=== PATIENT | male | born 1960 | race Caucasian/White ===

== ENCOUNTER 2019-02-04 13:02 | Emergency (ER) | payer MEDICAID, MEDICARE ==
[2019-02-04] MEDS ORDERED: Metoclopramide 10 MG/2 ML SDV IVPUSH ONE (13:57)
[2019-02-04] MEDS ORDERED: HYDROmorphone 1 MG/ML Syringe IVPUSH ONE (13:57)
[2019-02-04] MEDS ORDERED: Dextrose 5%-0.9% NaCl 1,000 ML IV SCH (14:00)
--- NOTE | 2019-02-04 14:00 | EDM.PDOC ---
ED HPI GENERAL MEDICAL PROBLEM - General Chief Complaint: General Stated Complaint: DEHYDRATION SENT BY CLINIC Time Seen by Provider: 02/04/19 13:57 Source of Information: Reports: Patient, Family History Limitations: Reports: No Limitations - History of Present Illness INITIAL COMMENTS - FREE TEXT/NARRATIVE: 58-year-old male presents to the ED after being seen by Dr. Dalila Quiroz on the family medicine clinic for the first time today. Patient has been residing in [place] but is originally from [facility]. It appears that he came back to [place] sometime in the last week. Someone has facilitated a apartment for him and he is living alone. The patient presents to the ED because of dehydration with a heart rate in the 130s. Her pressure was 92/72 initially. Complicated history reveals that he has had both legs amputated the right one at the hip the left 1 mid shaft of the femur. Reason for this is unclear although his sister states it was because of chronic MRSA infection I suspect osteomyelitis complicated likely by peripheral vascular disease. Patient denies being a diabetic. Patient has a suprapubic catheter in place which was changed on January 29. He has a colostomy left mid abdomen which has never been revised and is been present for many years apparently was done at [facility] in [place]. He states this is greater than 10 years ago. Patient denies having a fever. He states he is very thirsty but has not been able to keep up with his needs. He also has not been eating well. He's also been off of his pain medication since discharge from [place]. He previously has been on OxyContin and oxycodone for pain relief and he is in terrible pain at this point in time. On quick examination patient is indeed tachycardic. He appears to have a low-grade fever. Patient has loss of skin of his lower back entire both but talks almost down to the bone. His scrotum is intact. He has breakdown of the wound at his mid left femur with necrosis and purulent exudate. Onset: Other (Chronic problems.) Duration: Chronic Location: Reports: Back (Complete breakdown of all of the skin of his lower back and both but talks down to the sacrum coccyx. Smells strongly of anaerobic infective process. Scrotum is intact.), Upper Extremity, Left (Has a application mid shaft left femur with the amputation being broken down necrotic tissue and bone exposed.) Quality: Reports: Ache, Burning, Stabbing, Throbbing Severity: Severe Improves with: Reports: None (Pain is 8 out of 9 out of 10.) Worsens with: Reports: None Context: Reports: Other (He sits and a wheelchair that is motorized.). Denies: Activity, Exercise, Lifting, Sick Contact Associated Symptoms: Reports: Fever/Chills, Loss of Appetite, Malaise, Nausea/ Vomiting. Denies: Confusion, Chest Pain, Cough, cough w sputum, Diaphoresis, Headaches, Rash, Seizure (Occasional nausea no vomiting), Syncope Treatments TEACHERS AIDE: Reports: Other (see below) (None.) Generalized Pain Score (Numeric/FACES): 7 - Related Data Allergies Allergy/AdvReac Type Severity Reaction Status Date / Time amitriptyline Allergy Cannot Verified 02/04/19 14:24 Remember codeine Allergy Cannot Verified 02/04/19 14:24 Remember Home Meds: Home Meds Methocarbamol [Robaxin] 500 mg PO BID 02/04/19 [History] oxyCODONE 5 mg PO BID 02/04/19 [History] oxyCODONE HCl [Oxycontin] 40 mg PO BID 02/04/19 [History] Past Medical History Gastrointestinal History: Reports: Other (See Below) (Has a colostomy left lower quadrant of his abdomen which apparently has never required revision again the reason for this is unclear) Genitourinary History: Reports: Other (See Below) (Patient has a chronic indwelling suprapubic catheter was last changed January 29) Musculoskeletal History: Reports: Other (See Below) (Unclear reason for him to have lost his leg surgically. He has an amputation at the right hip and he has an amputation mid shaft left femur. The amputation is at the end of the left femur is broken down and is necrotic with exposed bone. He has extensive decubitus ulcer involving most of his lower back and both buttock cheeks down to the sacrum and coccyx. The scrotum is intact.) Social & Family History - Living Situation & Occupation Living situation: Reports: Single (Patient recently somehow managed to leave [facility] and get to [facility] within the last week.) Occupation: Disabled ED ROS GENERAL - Review of Systems Review Of Systems: See Below Constitutional: Reports: Fever, Chills, Malaise, Weakness, Fatigue, Decreased Appetite, Weight Loss HEENT: Reports: No Symptoms Respiratory: Reports: Shortness of Breath, Wheezing (Still smokes 5 cigarettes daily.), Cough Cardiovascular: Reports: Dyspnea on Exertion, Lightheadedness. Denies: Chest Pain, Blood Pressure Problem, Claudication, Edema, Orthopnea (Runs too low at times) Endocrine: Reports: Fatigue GI/Abdominal: Reports: Other (Colostomy left lower quadrant of the abdomen. Suprapubic indwelling Clarke catheter.). Denies: Abdominal Pain : Reports: Other (Chronic indwelling suprapubic catheter) Musculoskeletal: Reports: Other (Amputation of the right hip with a stump healed well. Amputation midshaft left femur with breakdown of the amputation site with bone exposure and evidence of infected necrotic tissue.) Skin: Reports: Other (Complete breakdown of his lower back both but talks down to the sacrum coccyx i.e. severe extensive skin and subcutaneous tissue loss that is taken several months to occur.) Neurological: Reports: Other (Chronic pain in his back and lower extremities.) Psychiatric: Reports: Depression Hematologic/Lymphatic: Reports: Anemia (To chronic illness) Immunologic: Reports: No Symptoms ED EXAM, GENERAL - Physical Exam Exam: See Below Exam Limited By: No Limitations General Appearance: Alert, WD/WN, Anxious, Mild Distress, Other (Patient was sent to the ED by Dr. Dalila Quiroz after she seen him in clinic with diagnosis of dehydration. The room reeks of necrotic/anaerobic infective processes.) Eye Exam: Bilateral Eye: Normal Inspection Throat/Mouth: Other (Tongue is shriveled dry and coated as is his oropharynx. Teeth are in ) Head: Atraumatic (need of extensive dental care.), Normocephalic Neck: Normal Inspection, Supple, Non-Tender, Full Range of Motion. No: Lymphadenopathy (L), Lymphadenopathy (R) Respiratory/Chest: Chest Non-Tender, Respiratory Distress (Tachypnea with respiratory rate of 40/m. Sats are 97%.), Decreased Breath Sounds (Decreased breath sounds lower 20% of lung gomez posteriorly.), Rhonchi, Wheezing ( Rhonchi in both lower lobes and bilateral expiratory wheezes.), Retractions Cardiovascular: No Edema, No Gallop (Tachycardia at rest 1 22/m sinus rhythm on the monitor.), No Murmur, No Rub, JVD, Tachycardia. No: Normal Peripheral Pulses Peripheral Pulses: 2+: Brachial (L), Brachial (R), Radial (L), Radial (R), Femoral (L), Femoral (R), 3+: Carotid (L), Carotid (R) GI/Abdominal: Other (Patient has a colostomy left lower midabdomen. It appears to be functioning well. He has an indwelling) (Male) Exam: Other (Scrotum is intact.) Rectal (Males) Exam: Other (Rectal tissue is proud. No hemorrhoids) Back Exam: Other (He isn't lost almost all of the skin from his top of the sacrum and extends to the hips bilaterally posteriorly and down to the sacrum coccyx with complete loss of skin and subcutaneous tissue and most of the muscle from the Botox i.e. the gluteus muscles.) Extremities: Other Neurological: Alert (Her extremities are both within normal limits with good strong radial pulses), Oriented, CN II-XII Intact, Normal Cognition Psychiatric: Anxious, Other (Anxious) Skin Exam: Warm, Dry ( a good deal of pain), Intact, Normal Color, No Rash EKG INTERPRETATION EKG Date: 02/04/19 Time: 15:17 Rhythm: Other (Ectopic atrial tachycardia-unifocal) Rate (Beats/Min): 124 [place]: Normal P-Wave: Enlarged QRS: Other (Q waves V1.) ST-T: Other (Diffuse repolarization abnormality V4 to V6 1 and aVL.) QT: Prolonged (QTC is markedly prolonged.) EKG Interpretation Comments: Abnormal ECG Course - Vital Signs Last Recorded V/S: Last Vital Signs Temp 37.4 C 02/04/19 13:35 Pulse 122 H 02/04/19 13:35 Resp 40 H 02/04/19 13:35 BP 103/78 02/04/19 13:35 Pulse Ox 97 02/04/19 13:35 - Orders/Labs/Meds Orders: Active Orders 24 hr Category Date Time Status EKG Documentation Completion [RC] STAT Care 02/04/19 13:59 Active CULTURE BLOOD [BC] Stat Lab 02/04/19 14:35 Received CULTURE BLOOD [BC] Stat Lab 02/04/19 14:45 Received Dextrose 5%-0.9% NaCl [Dextrose 5%-Normal Saline] 1,000 Med 02/04/19 14:00 Active ml IV ASDIRECTED NS + KCl 20mEq/L [Normal Saline with 20 mEq KCl] 1,000 Med 02/04/19 16:30 Active ml IV ASDIRECTED Piperacillin/Tazobactam [Piperacil-Tazobact] 4.5 gm Med 02/04/19 16:44 Active Sodium Chloride 0.9% [Normal Saline] 100 ml IV ONETIME Blood Culture x2 Reflex Set [OM.PC] Stat Oth 02/04/19 13:59 Ordered Medication Orders Dextrose/Sodium Chloride (Dextrose 5%-Normal Saline) 1,000 mls @ 999 mls/hr IV ASDIRECTED KIRSTIE Last Admin: 02/04/19 14:25 Dose: 999 mls/hr Potassium Chloride/Sodium Chloride (Normal Saline With 20 Meq Kcl) 1,000 mls @ 125 mls/hr IV ASDIRECTED KIRSTIE Last Admin: 02/04/19 16:37 Dose: 125 mls/hr Piperacillin Sod/Tazobactam (Sod 4.5 gm/ Sodium Chloride) 100 mls @ 25 mls/hr IV ONETIME ONE Stop: 02/04/19 20:43 Last Admin: 02/04/19 17:05 Dose: 25 mls/hr Labs: Laboratory Tests 02/04/19 02/04/19 02/04/19 Range/Units 14:35 14:35 14:35 WBC 4.66 (4.23-9.07) K/mm3 RBC 4.78 (4.63-6.08) M/mm3 Hgb 11.4 L (13.7-17.5) gm/L Hct 37.5 L (40.1-51.0) % MCV 78.5 L (79.0-92.2) fl MCH 23.8 L (25.7-32.2) pg MCHC 30.4 L (32.2-35.5) g/dl RDW Std Deviation 54.8 H (35.1-43.9) fL Plt Count 423 H (163-337) K/mm3 MPV 9.7 (9.4-12.3) fl Neutrophils % (Manual) 76 H (40-60) % Band Neutrophils % 0 (0-10) % Lymphocytes % (Manual) 23 (20-40) % Atypical Lymphs % 0 % Monocytes % (Manual) 1 L (2-10) % Eosinophils % (Manual) 0 L (0.8-7.0) % Basophils % (Manual) 0 L (0.2-1.2) Platelet Estimate Increased RBC Morph Comment Normal ESR (0-15) mm/hr PT 12.9 H (9.5-12.1) SECONDS INR 1.19 APTT 32 H (24-31) SECONDS Sodium 135 L (136-145) mEq/L Potassium 3.1 L (3.5-5.1) mEq/L Chloride 98 (98-107) mEq/L Carbon Dioxide 27 (21-32) mEq/L Anion Gap 13.1 (5-15) BUN 8 (7-18) mg/dL Creatinine 0.7 (0.7-1.3) mg/dL Est Cr Clr Drug Dosing TNP Estimated GFR (MDRD) > 60 (>60) mL/min BUN/Creatinine Ratio 11.4 L (14-18) Glucose 150 H (74-106) mg/dL Lactic Acid (0.4-2.0) mmol/L Calcium 9.5 (8.5-10.1) mg/dL Magnesium 2.0 (1.8-2.4) mg/dl Total Bilirubin 0.9 (0.2-1.0) mg/dL AST 24 (15-37) U/L ALT 21 (16-63) U/L Alkaline Phosphatase 216 H (46-116) U/L C-Reactive Protein 110.5 H* (<1.0) mg/dL NT-Pro-B Natriuret Pep (0-125) pg/mL Total Protein 9.4 H (6.4-8.2) g/dl Albumin 1.7 L (3.4-5.0) g/dl Globulin 7.7 gm/dL Albumin/Globulin Ratio 0.2 L (1-2) 02/04/19 02/04/19 02/04/19 Range/Units 14:35 14:35 14:35 WBC (4.23-9.07) K/mm3 RBC (4.63-6.08) M/mm3 Hgb (13.7-17.5) gm/L Hct (40.1-51.0) % MCV (79.0-92.2) fl MCH (25.7-32.2) pg MCHC (32.2-35.5) g/dl RDW Std Deviation (35.1-43.9) fL Plt Count (163-337) K/mm3 MPV (9.4-12.3) fl Neutrophils % (Manual) (40-60) % Band Neutrophils % (0-10) % Lymphocytes % (Manual) (20-40) % Atypical Lymphs % % Monocytes % (Manual) (2-10) % Eosinophils % (Manual) (0.8-7.0) % Basophils % (Manual) (0.2-1.2) Platelet Estimate RBC Morph Comment ESR 108 H (0-15) mm/hr PT (9.5-12.1) SECONDS INR APTT (24-31) SECONDS Sodium (136-145) mEq/L Potassium (3.5-5.1) mEq/L Chloride (98-107) mEq/L Carbon Dioxide (21-32) mEq/L Anion Gap (5-15) BUN (7-18) mg/dL Creatinine (0.7-1.3) mg/dL Est Cr Clr Drug Dosing Estimated GFR (MDRD) (>60) mL/min BUN/Creatinine Ratio (14-18) Glucose (74-106) mg/dL Lactic Acid 1.3 (0.4-2.0) mmol/L Calcium (8.5-10.1) mg/dL Magnesium (1.8-2.4) mg/dl Total Bilirubin (0.2-1.0) mg/dL AST (15-37) U/L ALT (16-63) U/L Alkaline Phosphatase (46-116) U/L C-Reactive Protein (<1.0) mg/dL NT-Pro-B Natriuret Pep 2895 H (0-125) pg/mL Total Protein (6.4-8.2) g/dl Albumin (3.4-5.0) g/dl Globulin gm/dL Albumin/Globulin Ratio (1-2) Meds: Medications Generic Name Dose Route Start Last Admin Trade Name Freq PRN Reason Stop Dose Admin Dextrose/Sodium Chloride 1,000 mls @ 999 mls/hr 02/04/19 14:00 02/04/19 14:25 Dextrose 5%-Normal Saline IV 999 mls/hr ASDIRECTED KIRSTIE Administration Potassium Chloride/Sodium Chloride 1,000 mls @ 125 mls/hr 02/04/19 16:30 02/19 16:37 Normal Saline With 20 Meq Kcl IV 125 mls/hr ASDIRECTED KIRSTIE Administration Piperacillin Sod/Tazobactam 100 mls @ 25 mls/hr 02/04/19 16:44 02/04/19 17:05 Sod 4.5 gm/ Sodium Chloride IV 02/04/19 20:43 25 mls/hr ONETIME ONE Administration Discontinued Medications Generic Name Dose Route Start Last Admin Trade Name Freq PRN Reason Stop Dose Admin Hydromorphone HCl 1 mg 02/04/19 13:57 02/04/19 14:26 Dilaudid IVPUSH 02/04/19 13:58 1 mg ONETIME ONE Administration Clindamycin Phosphate 900 mg/ 106 mls @ 100 mls/hr 02/04/19 16:02 02/04/19 16 :17 Sodium Chloride IV 02/04/19 17:05 100 mls/hr ONETIME ONE Administration Sodium Chloride Confirm 02/04/19 16:07 02/04/19 16:38 Normal Saline Administered 02/04/19 16:08 Not Given Dose 100 mls @ as directed .ROUTE .STK-MED ONE Metoclopramide HCl 5 mg 02/04/19 13:57 02/04/19 14:27 Reglan IVPUSH 02/04/19 13:58 5 mg ONETIME ONE Administration Oxycodone HCl 10 mg 02/04/19 16:24 02/04/19 16:38 Oxycontin PO 02/04/19 16:25 10 mg ONETIME ONE Administration Oxycodone HCl 20 mg 02/04/19 16:24 02/04/19 16:38 Oxycontin PO 02/04/19 16:25 20 mg ONETIME ONE Administration - Radiology Interpretation Free Text/Narrative:: 58-year-old male presents to the ED in moribund condition. He is alert and oriented and answers questions appropriately. Patient has chronic severe illnesses and apparently was in a long term in [place] up until a week ago. He 's had bilateral palpitations of the lower extremities the right when at the hip and the left mid shaft of the femur. The current wound is broken down mid femur and is showing necrotic tissue and exposed bone. He has a colostomy and a chronic suprapubic catheter in place. He's a smoker and he has rhonchi and some wheezing throughout both lung gomez with O2 sats of 97%. His respiratory was 40 /m. His heart rate in the 122/m sinus tachycardia. He appears to be volume depleted. Inspection of his lower back shows complete loss of skin subcutaneous tissue and most of the muscle of the gluteus muscles from the upper sacrum down to the bone. - Re-Assessments/Exams Free Text/Narrative Re-Assessment/Exam: 02/04/19 15:46 White count is 4.66 with differential pending. Hemoglobin is 11.4 with hematocrit of 37.5. MCV is 78.5 indicating iron deficiency. Platelet count is elevated at 423,000 i.e. central thrombosed's cytosis. Sedimentation rate is 108. PT is 12.9 with an INR 1.19 i.e. mildly auto anticoagulation. PTT is 32. Sodium 135 with potassium of 3.1. Chloride is 98.bicarbonate of 27. Anion gap is 13.1. BUN is 8 with a creatinine of 0.7. GFR remains greater than 60. Glucose is 150. Lactic acid is 1.3. Calcium is 9.5. Magnesium is 2.0 liver function is normal other than elevated alk phosphatase of 216 which most likely is coming from underlying bone. C-reactive protein is 110.5. Total protein is 9.4. Albumin fraction is low at 1.7. Chest x-ray done portably reveals mildly hyperinflated lung gomez. Aorta is slightly tortuous. Silhouette is upper limits of normal. He has evidence of spinal fusion with rods from lower thoracic spine throughout the lumbar spine. 02/04/19 16:10: Spoke with president financial institution nurse at [facility] in [place] and then subsequently to Dr. Benitez in the ED. She'll be sent to that facility for ongoing care particularly to address his dehiscence or amputation breakdown over his left mid/distal femur. His decubiti involving both sides of his gluteus lula minimus and medius muscles down to the perineum will have to be packed and cleansed. Antibiotic started in this hospital clindamycin 900 mg IV and he will receive Zosyn 4.5 g IV en route to [place] in the ambulance. Chest x-ray has been sent by PACs. 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, limited to breakdown of skin, Decubitus ulcer of sacral region, unstageable, Wound with infection determined by examination, Intravascular volume depletion - Discharge Information *PRESCRIPTION DRUG MONITORING PROGRAM REVIEWED*: Not Applicable *COPY OF PRESCRIPTION DRUG MONITORING REPORT IN PATIENT ANNA: Not Applicable Referrals: Tracy Quiroz MD [Primary Care Provider] - Forms: ED Department Discharge - My Orders Last 24 Hours: My Active Orders 02/04/19 13:59 EKG Documentation Completion [RC] STAT Blood Culture x2 Reflex Set [OM.PC] Stat 02/04/19 14:00 Dextrose 5%-0.9% NaCl [Dextrose 5%-Normal Saline] 1,000 ml IV ASDIRECTED 02/04/19 14:35 CULTURE BLOOD [BC] Stat 02/04/19 14:45 CULTURE BLOOD [BC] Stat 02/04/19 16:30 NS + KCl 20mEq/L [Normal Saline with 20 mEq KCl] 1,000 ml IV ASDIRECTED 02/04/19 16:44 Piperacillin/Tazobactam [Piperacil-Tazobact] 4.5 gm Sodium Chloride 0.9% [ Normal Saline] 100 ml IV ONETIME - Assessment/Plan Last 24 Hours: My Active Orders 02/04/19 13:59 EKG Documentation Completion [RC] STAT Blood Culture x2 Reflex Set [OM.PC] Stat 02/04/19 14:00 Dextrose 5%-0.9% NaCl [Dextrose 5%-Normal Saline] 1,000 ml IV ASDIRECTED 02/04/19 14:35 CULTURE BLOOD [BC] Stat 02/04/19 14:45 CULTURE BLOOD [BC] Stat 02/04/19 16:30 NS + KCl 20mEq/L [Normal Saline with 20 mEq KCl] 1,000 ml IV ASDIRECTED 02/04/19 16:44 Piperacillin/Tazobactam [Piperacil-Tazobact] 4.5 gm Sodium Chloride 0.9% [ Normal Saline] 100 ml IV ONETIME
--- NOTE | 2019-02-04 14:24 | CR ---
Chest: Portable view of the chest was obtained. Comparison: No prior chest x-ray. Heart size is normal. Mild tortuosity of the thoracic aorta is seen. Previous lumbar and lower thoracic spine surgery is seen. Minimal discoid atelectasis within the lateral costophrenic angle is seen. Lungs are clear with no acute parenchymal change. Impression: 1. Incidental findings. Nothing acute is seen on portable chest x-ray. Diagnostic code #2
[2019-02-04] MEDS ORDERED: Clindamycin Phosphate 900 MG in Sodium Chloride 0.9% 100 ML IV ONE (16:02)
[2019-02-04] MEDS ORDERED: Sodium Chloride 0.9% 100 ML ONE (16:07)
[2019-02-04] MEDS ORDERED: oxyCODONE ER 20 MG TAB.ER PO ONE (16:24)
[2019-02-04] MEDS ORDERED: oxyCODONE ER 10 MG TAB.ER PO ONE (16:24)
[2019-02-04] MEDS ORDERED: NS + KCl 20mEq/L 1,000 ML IV SCH (16:30)
[2019-02-04] MEDS: Piperacillin/Tazobactam 4.5 GM in Sodium Chloride 0.9% 100 ML IV ONE ×2 (17:05→18:18)
== END 2019-02-04 17:10 ==
LOC: JD.ED 13:02
DX: T87.54 Necrosis of amputation stump, left lower extremity (principal); L89.150 Pressure ulcer of sacral region, unstageable; E86.9 Volume depletion, unspecified; Z88.5 Allergy status to narcotic agent; Z79.899 Other long term (current) drug therapy; Z89.611 Acquired absence of right leg above knee; Z89.612 Acquired absence of left leg above knee
CPT/HCPCS: 36415; 71045; 80053; 83605; 83735; 83880; 85007; 85027; 85610; 85652; 85730; 86140; 87040; 93005; 96361; 96365; 96375; 99284; A9270; J1170; J2765; J3480; J3490; J7030; J7042; 93010; 99285; J2543

== ENCOUNTER 2019-03-18 18:31 | Emergency (ER) | payer MEDICARE, MEDICAID ==
[2019-03-18] MEDS ORDERED: Sodium Chloride 0.9% 10 ML Syringe FLUSH PRN (19:07)
[2019-03-18] MEDS ORDERED: HYDROmorphone 1 MG/ML Syringe IVPUSH ONE (19:54)
--- NOTE | 2019-03-18 20:08 | EDM.PDOC ---
<Jame Perdomo Felicitas - Last Filed: 03/19/19 06:59> ED HPI GENERAL MEDICAL PROBLEM - General Chief Complaint: Fever Stated Complaint: FEVER CATH BLEEDING Time Seen by Provider: 03/18/19 18:56 Source of Information: Reports: Patient, RN Notes Reviewed - History of Present Illness INITIAL COMMENTS - FREE TEXT/NARRATIVE: 58-year-old male has presented to the ED with multiple concerns/complaints. He states he did start running fever this afternoon a few hours prior to arrival. Since his temp was up to about 103 at home but found to be afebrile on arrival to ED. He states there has been some "bloody drainage from around his urostomy tube today that apparently is a new development. His history is quite complicated. 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 See prior record for details of prior history. He does have a chronic indwelling urostomy tube he has had for many years. He had been living according to prior records at a "fdc in [place] and then recently moved here in [place] about 2 months ago". He did present to this ED about 6 weeks ago dehydrated with ulceration of his left stump and severe ulceration of his low back and sacrum almost down to the bone. He was evaluated and than transferred to [facility] where he states he was in the hospital for "about a month". He just was released home about a week to 10 days ago. He does have home health checking in on him about 3 times a week and providing wound care. He also has a sister that provides wound care on a daily basis. Lower Abdominal Pain Score (Numeric/FACES): 8 - Related Data Allergies Allergy/AdvReac Type Severity Reaction Status Date / Time amitriptyline Allergy Cannot Verified 03/18/19 18:48 Remember codeine Allergy Cannot Verified 03/18/19 18:48 Remember Home Meds: Home Meds oxyCODONE HCl [Oxycontin] 40 mg PO BID 02/04/19 [History] Apixaban [Eliquis] 5 mg PO BID 03/18/19 [History] Carvedilol 3.125 mg PO BID 03/18/19 [History] Clopidogrel [Plavix] 75 mg PO DAILY 03/18/19 [History] Digoxin 125 mcg PO DAILY 03/18/19 [History] Losartan Potassium 25 mg PO DAILY 03/18/19 [History] Doxycycline [Vibramycin] 100 mg PO BID #20 cap 03/19/19 [Rx] Sulfamethoxazole/Trimethoprim [Bactrim Ds Tablet] 1 each PO BID #20 tablet 03/22 [Rx] Past Medical History Cardiovascular History: Reports: Hypertension Gastrointestinal History: Reports: Other (See Below) Genitourinary History: Reports: Other (See Below) Musculoskeletal History: Reports: Other (See Below) Dermatologic History: Reports: Decubitus Ulcer - Past Surgical History GI Surgical History: Reports: Colostomy Male Surgical History: Reports: Suprapubic Catheter Placement Musculoskeletal Surgical History: Reports: Amputation Social & Family History - Tobacco Use Smoking Status *Q: Unknown Ever Smoked - Caffeine Use Caffeine Use: Reports: None - Living Situation & Occupation Living situation: Reports: Single Occupation: Disabled ED ROS GENERAL - Review of Systems Review Of Systems: See Below Constitutional: Reports: Fever, Chills (Non-non-) HEENT: Denies: Sinus Problem, Throat Pain Respiratory: Reports: Cough. Denies: Shortness of Breath Cardiovascular: Denies: Chest Pain (Chronic) GI/Abdominal: Denies: Abdominal Pain, Nausea, Vomiting : Reports: Other (.purulent drainage around urostomy tube and also some bloody drainage this afternoon) Musculoskeletal: Reports: Other (Patient has a below the hip amputation of his right lower extremity that looks good, amputation of left proximal femur with large open fleshy wound exposed distal stump, no purulent drainage at this time covered with a simple dressing) Skin: Reports: Other. Denies: Rash ED EXAM, GENERAL - Physical Exam Exam: See Below General Appearance: Alert, No Apparent Distress Eye Exam: Bilateral Eye: PERRL Throat/Mouth: Normal Inspection, Normal Oropharynx Head: Atraumatic. No: Facial Swelling Neck: Supple. No: Lymphadenopathy (L), Lymphadenopathy (R) Respiratory/Chest: No Respiratory Distress, Lungs Clear, Normal Breath Sounds Cardiovascular: Tachycardia GI/Abdominal: Soft, Non-Tender, Other (He does have a colostomy left abdomen and then he does have a urostomy lower mid abdomen with slight. Went drainage around the tube, no bloody drainage at this time) Back Exam: Other (Patient has huge open ulceration of low back, sacrum and coccyx with loss of muscle and tissue almost down to the bone but no purulent drainage visible at this time) Extremities: Other (He has a below the hip amputation of right proximal femur, stump looks very good, amputation left proximal femur with a large fleshy open tissue of the distal stump witn no purulent drainage at this time.) Course - Vital Signs Last Recorded V/S: Last Vital Signs Temp 97.1 F 03/18/19 18:44 Pulse 115 H 03/18/19 18:44 Resp 18 03/18/19 18:44 BP 101/64 03/18/19 18:44 Pulse Ox 100 03/18/19 18:44 - Orders/Labs/Meds Labs: Laboratory Tests 03/18/19 03/18/19 03/18/19 Range/Units 19:30 19:30 20:10 WBC 3.72 L (4.23-9.07) K/mm3 RBC 3.98 L (4.63-6.08) M/mm3 Hgb 10.4 L (13.7-17.5) gm/L Hct 34.6 L (40.1-51.0) % MCV 86.9 (79.0-92.2) fl MCH 26.1 (25.7-32.2) pg MCHC 30.1 L (32.2-35.5) g/dl RDW Std Deviation 60.8 H (35.1-43.9) fL Plt Count 317 (163-337) K/mm3 MPV 9.8 (9.4-12.3) fl Neutrophils % (Manual) 59 (40-60) % Band Neutrophils % 0 (0-10) % Lymphocytes % (Manual) 34 (20-40) % Atypical Lymphs % 0 % Monocytes % (Manual) 6 (2-10) % Eosinophils % (Manual) 1 (0.8-7.0) % Basophils % (Manual) 0 L (0.2-1.2) Platelet Estimate Adequate Polychromasia Few Anisocytosis 2+ moderate Macrocytosis 1+ slight RBC Morph Comment Not Reportable Sodium 135 L (136-145) mEq/L Potassium 4.1 (3.5-5.1) mEq/L Chloride 100 (98-107) mEq/L Carbon Dioxide 26 (21-32) mEq/L Anion Gap 13.1 (5-15) BUN 12 (7-18) mg/dL Creatinine 0.9 (0.7-1.3) mg/dL Est Cr Clr Drug Dosing TNP Estimated GFR (MDRD) > 60 (>60) mL/min BUN/Creatinine Ratio 13.3 L (14-18) Glucose 156 H (74-106) mg/dL Lactic Acid (0.4-2.0) mmol/L Calcium 9.1 (8.5-10.1) mg/dL Total Bilirubin 0.4 (0.2-1.0) mg/dL AST 17 (15-37) U/L ALT 17 (16-63) U/L Alkaline Phosphatase 184 H (46-116) U/L C-Reactive Protein 12.0 H* (<1.0) mg/dL Total Protein 9.1 H (6.4-8.2) g/dl Albumin 2.1 L (3.4-5.0) g/dl Globulin 7.0 gm/dL Albumin/Globulin Ratio 0.3 L (1-2) Urine Color Yellow (Yellow) Urine Appearance Cloudy H (Clear) Urine pH 8.5 H (5.0-8.0) Ur Specific [place] 1.010 (1.005-1.030) Urine Protein 2+ H (Negative) Urine Glucose (UA) Negative (Negative) Urine Ketones Negative (Negative) Urine Occult Blood 1+ H (Negative) Urine Nitrite Positive H (Negative) Urine Bilirubin Negative (Negative) Urine Urobilinogen 1.0 (0.2-1.0) Ur Leukocyte Esterase 3+ H (Negative) Urine RBC 5-10 H (0-5) /hpf Urine WBC 10-20 H (0-5) /hpf Ur Squamous Epith Cells Not seen (0-5) /hpf Urine Bacteria Many H (FEW) /hpf Urine Mucus Not seen (FEW) /hpf 03/18/19 Range/Units 20:26 WBC (4.23-9.07) K/mm3 RBC (4.63-6.08) M/mm3 Hgb (13.7-17.5) gm/L Hct (40.1-51.0) % MCV (79.0-92.2) fl MCH (25.7-32.2) pg MCHC (32.2-35.5) g/dl RDW Std Deviation (35.1-43.9) fL Plt Count (163-337) K/mm3 MPV (9.4-12.3) fl Neutrophils % (Manual) (40-60) % Band Neutrophils % (0-10) % Lymphocytes % (Manual) (20-40) % Atypical Lymphs % % Monocytes % (Manual) (2-10) % Eosinophils % (Manual) (0.8-7.0) % Basophils % (Manual) (0.2-1.2) Platelet Estimate Polychromasia Anisocytosis Macrocytosis RBC Morph Comment Sodium (136-145) mEq/L Potassium (3.5-5.1) mEq/L Chloride (98-107) mEq/L Carbon Dioxide (21-32) mEq/L Anion Gap (5-15) BUN (7-18) mg/dL Creatinine (0.7-1.3) mg/dL Est Cr Clr Drug Dosing Estimated GFR (MDRD) (>60) mL/min BUN/Creatinine Ratio (14-18) Glucose (74-106) mg/dL Lactic Acid 2.8 H (0.4-2.0) mmol/L Calcium (8.5-10.1) mg/dL Total Bilirubin (0.2-1.0) mg/dL AST (15-37) U/L ALT (16-63) U/L Alkaline Phosphatase (46-116) U/L C-Reactive Protein (<1.0) mg/dL Total Protein (6.4-8.2) g/dl Albumin (3.4-5.0) g/dl Globulin gm/dL Albumin/Globulin Ratio (1-2) Urine Color (Yellow) Urine Appearance (Clear) Urine pH (5.0-8.0) Ur Specific [place] (1.005-1.030) Urine Protein (Negative) Urine Glucose (UA) (Negative) Urine Ketones (Negative) Urine Occult Blood (Negative) Urine Nitrite (Negative) Urine Bilirubin (Negative) Urine Urobilinogen (0.2-1.0) Ur Leukocyte Esterase (Negative) Urine RBC (0-5) /hpf Urine WBC (0-5) /hpf Ur Squamous Epith Cells (0-5) /hpf Urine Bacteria (FEW) /hpf Urine Mucus (FEW) /hpf Meds: Medications Discontinued Medications Generic Name Dose Route Start Last Admin Trade Name Freq PRN Reason Stop Dose Admin Hydrocodone Bitart/Acetaminophen 1 tab 03/19/19 00:51 03/19/19 00:57 [place] 325-5 Mg PO 03/19/19 00:52 1 tab ONETIME ONE Administration Doxycycline Hyclate 100 mg 03/19/19 00:49 03/19/19 00:58 Vibramycin PO 03/19/19 00:50 100 mg ONETIME ONE Administration Doxycycline Hyclate 100 mg 03/19/19 06:32 03/19/19 06:47 Vibramycin PO 03/19/19 06:33 100 mg ONETIME ONE Administration Hydromorphone HCl 1 mg 03/18/19 19:54 03/18/19 20:04 Dilaudid IVPUSH 03/18/19 19:55 1 mg ONETIME ONE Administration Sodium Chloride 1,000 mls @ 999 mls/hr 03/18/19 20:15 03/19/19 00:00 Normal Saline IV 999 mls/hr ONETIME KIRSTIE Administration Sodium Chloride 1,000 mls @ 999 mls/hr 03/18/19 23:15 Normal Saline IV ONETIME KIRSTIE Sodium Chloride Confirm 03/19/19 00:53 03/19/19 00:59 Normal Saline Administered 03/19/19 00:54 Not Given Dose 1,000 mls @ as directed .ROUTE .STK-MED ONE Sodium Chloride 1,000 mls @ 150 mls/hr 03/19/19 01:00 03/19/19 00:59 Normal Saline IV 150 mls/hr ASDIRECTED KIRSTIE Administration Lorazepam 1 mg 03/19/19 00:03 03/19/19 00:07 Ativan PO 03/19/19 00:04 1 mg ONETIME ONE Administration Sodium Chloride 10 ml 03/18/19 19:07 03/18/19 19:30 Saline Flush FLUSH 10 ml ASDIRECTED PRN Administration Keep Vein Open - Re-Assessments/Exams Free Text/Narrative Re-Assessment/Exam: 03/18/19 22:12. When I went into the room to discharge him a very short time ago he tells me he is now "homeless". Does have a basement room or apartment here in town. He does have application in to get an apartment at [facility] but that is still a work in progress. He states "his landlord has kicked him out". He states at times he has had to knock on the ceiling of his apartment for assistance and apparently that is not appreciated and also she found a cigarette butt near his bed so therefore he has been asked to be out of the apartment by today or tomorrow at the latest. His sister states now if she were to try take him back this time of the evening "the door will be locked" and they will have no access to his apartment. I did visit with Dr. Quiroz earlier this evening about the need to have his urostomy tube changed. She and her staff will work on getting a referral to Urology tomorrow during normal clinic hours. His white blood count did come back normal. Labs showed very mild dehydration but chemistries all were relatively with anion gap just very mildly elevated. Therefore we will keep him here in the ED tonight and see if one of our social workers can look into the situation with his apartment in the morning. I do not know what his current lease or rental agreement dictates but it would seem that he cannot just be kicked out of his apartment on a 1 or 2 day notice with nowhere safe to go. He also states that he is under consideration for approval for an apartment at [facility], waiting to hear for approval to move to one of their apartments. 03/19/19 06:33. I did visit with patient a few minutes ago and he is resting very comfortably, was able to get some sleep during the night. We have given almost 3 L of IV fluid and the urine in his catheter tubing and bedside bag is much more clear than it was last evening. With his history of MRSA and the small amount of drainage he did have on arrival last evening around his catheter lower abdomen I have started him on doxycycline. We did give a 100 mg dose last evening and now a further 100 mg dose this morning. Presciption has been written to continue that. He is medically stable for discharge once we know he will be able to return to his apartment. 03/19/19 06:59. End of shift. I have written discharge instr. Hopefully he will be able to return to his apartment. I have discussed his situation with Dr Luciano who has now come on duty so he is aware. Have asked nursing to have one of our social workers investigate his living situation once they come on duty this morning. Departure - Departure Time of Disposition: 06:17 Disposition: Home, Self-Care 01 Condition: Fair Clinical Impression: Ulceration of stump of above knee amputation of left lower extremity, limited to breakdown of skin, Decubitus ulcer of sacral region, unstageable, Intravascular volume depletion UTI (urinary tract infection) due to urinary indwelling catheter Qualifiers: Indwelling urinary catheter type: cystostomy catheter Encounter type: initial encounter Qualified Code(s): T83.510A - Infection and inflammatory reaction due to cystostomy catheter, initial encounter - Discharge Information Prescriptions: Doxycycline [Vibramycin] 100 mg PO BID #20 cap Sulfamethoxazole/Trimethoprim [Bactrim Ds Tablet] 1 each PO BID #20 tablet Instructions: Urinary Tract Infection, Adult Referrals: Tracy Quiroz MD [Primary Care Provider] - Forms: ED Department Discharge Additional Instructions: Drink plenty of water to maintain hydration, doxycycline antibiotic 100 mg twice daily in addition to the other medications that you are currently taking. Dr. Quiroz and her clinic staff are going to try get you an appointment with Urology to get your bladder catheter changed. Try see Dr Quiroz next week for follow up appointment. Call [phone] for appointment. Return to ED as needed if symptoms worsening in any way. <Maurilio Luciano - Last Filed: 03/22/19 08:34> Course - Re-Assessments/Exams Free Text/Narrative Re-Assessment/Exam: 03/22/19 08:32 The patient was here almost 20 hours. Yany came to see the patient and tried to get him placed somewhere but had difficulty. He went home with his sister. They are trying to get him into assisted living or fdc. His culture was growing out a few bacteria susceptible to bactrim so I switched him to bactrim.
[2019-03-18] MEDS: Sodium Chloride 0.9% 1,000 ML IV SCH (20:35)
[2019-03-18] MEDS ORDERED: Sodium Chloride 0.9% 1,000 ML IV SCH (23:15)
[2019-03-19] MEDS: Sodium Chloride 0.9% 1,000 ML IV SCH
[2019-03-19] MEDS ORDERED: LORazepam 1 MG Tab PO ONE (00:03)
[2019-03-19] MEDS ORDERED: Doxycycline 100 MG Cap PO ONE ×2 (00:49→06:32)
[2019-03-19] MEDS ORDERED: Acetaminophen/HYDROcodone 325-5 MG Tab PO ONE (00:51)
[2019-03-19] MEDS ORDERED: Sodium Chloride 0.9% 1,000 ML ONE (00:53)
[2019-03-19] MEDS ORDERED: Sodium Chloride 0.9% 1,000 ML IV SCH (01:00)
--- NOTE | 2019-03-19 06:08 | CR ---
Chest: Portable view of the chest was obtained. Comparison: Prior chest x-ray of 02/04/19. Heart size is normal. Upper mediastinum is within normal limits. Slight tortuosity of the thoracic aorta is seen. Spinal fixation is noted with lower thoracic and lumbar region. Lungs are clear with no acute parenchymal change. Impression: 1. Incidental findings. Nothing acute is appreciated on portable chest x-ray. Diagnostic code #1
== END 2019-03-19 16:04 | disposition home or self-care (01) ==
LOC: JD.ED 18:31
DX: T83.510A Infection and inflammatory reaction due to cystostomy catheter, initial encounter (principal); T87.89 Other complications of amputation stump; L89.150 Pressure ulcer of sacral region, unstageable; Z89.612 Acquired absence of left leg above knee; I10 Essential (primary) hypertension; Z79.899 Other long term (current) drug therapy; Z88.5 Allergy status to narcotic agent; Z88.8 Allergy status to other drugs, medicaments and biological substances
CPT/HCPCS: 36415; 71045; 80053; 81001; 83605; 85007; 85027; 86140; 87040; 87070; 87077; 87086; 87088; 87186; 96361; 96374; 99284; A9270; J1170; J7040

== ENCOUNTER 2021-05-15 14:05 | Emergency (ER) | payer MEDICARE, MEDICAID ==
--- NOTE | 2021-05-15 15:05 | EDM.PDOC ---
ED HPI GENERAL MEDICAL PROBLEM - General Chief Complaint: Gastrointestinal Problem Stated Complaint: SENT BY DR QUIROZ FOR BLOOD IN OSTOMY BAG Time Seen by Provider: 05/15/21 14:40 - History of Present Illness INITIAL COMMENTS - FREE TEXT/NARRATIVE: 60-year-old male presents the emergency room with blood in his ostomy. Patient believes this started today yesterday he does not believe it was there he checks for blood on a routine basis. Patient has a suprapubic catheter and colostomy. 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 The patient is taking Eliquis. He denies any pain. Abdomen Pain Score (Numeric/FACES): 7 - Related Data Allergies Allergy/AdvReac Type Severity Reaction Status Date / Time amitriptyline Allergy Cannot Verified 05/15/21 14:30 Remember codeine Allergy Cannot Verified 05/15/21 14:30 Remember Home Meds: Home Meds oxyCODONE HCl [Oxycontin] 40 mg PO BID 02/04/19 [History] Apixaban [Eliquis] 5 mg PO BID 03/18/19 [History] Clopidogrel [Plavix] 75 mg PO DAILY 03/18/19 [History] Digoxin 125 mcg PO DAILY 03/18/19 [History] Losartan Potassium 25 mg PO DAILY 03/18/19 [History] carvediloL [Carvedilol] 3.125 mg PO BID 03/18/19 [History] Doxycycline [Vibramycin] 100 mg PO BID #20 cap 03/19/19 [Rx] Sulfamethoxazole/Trimethoprim [Bactrim Ds Tablet] 1 each PO BID #20 tablet 03/22/19 [Rx] Sulfamethoxazole/Trimethoprim [Bactrim Ds Tablet] 1 each PO BID #20 tablet 03/22/19 [Rx] Past Medical History Cardiovascular History: Reports: Other (See Below) Other Cardiovascular History: hypotension Gastrointestinal History: Reports: Other (See Below) Genitourinary History: Reports: Other (See Below) Musculoskeletal History: Reports: Other (See Below) Dermatologic History: Reports: Decubitus Ulcer - Past Surgical History GI Surgical History: Reports: Colostomy Male Surgical History: Reports: Suprapubic Catheter Placement Musculoskeletal Surgical History: Reports: Amputation Social & Family History - Tobacco Use Tobacco Use Status *Q: Current Every Day Tobacco User Years of Tobacco use: 40 Packs/Tins Daily: 0.2 - Caffeine Use Caffeine Use: Reports: None - Recreational Drug Use Recreational Drug Use: No - Living Situation & Occupation Living situation: Reports: Single Occupation: Disabled ED ROS GENERAL - Review of Systems Review Of Systems: See Below Constitutional: Reports: No Symptoms HEENT: Reports: No Symptoms Respiratory: Reports: No Symptoms Cardiovascular: Reports: No Symptoms GI/Abdominal: Reports: Other (See history of present illness). 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 No: CVA Tenderness (L), CVA Tenderness (R) Course - Vital Signs Last Recorded V/S: Last Vital Signs Temp 36.2 C 05/15/21 14:24 Pulse 82 05/15/21 14:24 Resp 16 05/15/21 14:24 BP 70/44 L 05/15/21 14:24 Pulse Ox 97 05/15/21 14:24 - Orders/Labs/Meds Orders: Active Orders 24 hr Category Date Time Status Abdomen Pelvis w Cont [CT] Stat Exams 05/15/21 17:06 Ordered Labs: Laboratory Tests 05/15/21 05/15/21 05/15/21 Range/Units 15:18 15:18 15:18 WBC 3.07 L (4.23-9.07) K/mm3 RBC 2.97 L (4.63-6.08) M/mm3 Hgb 7.7 L D (13.7-17.5) gm/dl Hct 25.9 L (40.1-51.0) % MCV 87.2 (79.0-92.2) fl MCH 25.9 (25.7-32.2) pg MCHC 29.7 L (32.2-35.5) g/dl RDW Std Deviation 57.3 H (35.1-43.9) fL Plt Count 288 (163-337) K/mm3 MPV 9.6 (9.4-12.3) fl Neut % (Auto) 55.8 (34.0-67.9) % Lymph % (Auto) 30.6 (21.8-53.1) % [place] % (Auto) 10.4 (5.3-12.2) % Eos % (Auto) 2.6 (0.8-7.0) Baso % (Auto) 0.3 (0.1-1.2) % Neut # (Auto) 1.71 L (1.78-5.38) K/mm3 Lymph # (Auto) 0.94 L (1.32-3.57) K/mm3 [place] # (Auto) 0.32 (0.30-0.82) K/mm3 Eos # (Auto) 0.08 (0.04-0.54) K/mm3 Baso # (Auto) 0.01 (0.01-0.08) K/mm3 Manual Slide Review Abnormal smear PT 11.9 (9.7-12.0) SECONDS INR 1.11 APTT 29.3 (21.7-31.4) SECONDS Sodium 136 (136-145) mEq/L Potassium 3.9 (3.5-5.1) mEq/L Chloride 100 (98-107) mEq/L Carbon Dioxide 28 (21-32) mEq/L Anion Gap 11.9 (5-15) BUN 20 H (7-18) mg/dL Creatinine 1.1 (0.7-1.3) mg/dL Est Cr Clr Drug Dosing TNP Estimated GFR (MDRD) > 60 (>60) mL/min BUN/Creatinine Ratio 18.2 H (14-18) Glucose 152 H (70-99) mg/dL Calcium 9.5 (8.5-10.1) mg/dL Total Bilirubin 0.3 (0.2-1.0) mg/dL AST 17 (15-37) U/L ALT 20 (16-63) U/L Alkaline Phosphatase 207 H (46-116) U/L Total Protein 8.8 H (6.4-8.2) g/dl Albumin 1.7 L (3.4-5.0) g/dl Globulin 7.1 gm/dL Albumin/Globulin Ratio 0.2 L (1-2) Lipase 485 H (73-393) U/L Meds: Medications Discontinued Medications Generic Name Dose Route Start Last Admin Trade Name Ha PRN Reason Stop Dose Admin Sodium Chloride 500 mls @ 999 mls/hr 05/15/21 16:58 Normal Saline IV 05/15/21 17:28 .BOLUS ONE - Re-Assessments/Exams Free Text/Narrative Re-Assessment/Exam: 05/15/21 17:13 Patient had his anemia but this is really dropped since the end of March of this year. I do not know if this is related to the Eliquis. Did discuss situation with Dr. Nazario we will go ahead and check a abdomen pelvis CT with contrast GI bleed protocol. 05/15/21 18:04 She has had multiple sticks to try and get an IV in and at this point is refusing any more. I discussed this with the patient and he adamantly refuses to get an IV in. However the patient does agree to return to the emergency room with any questions problems and agrees to follow-up in the clinic tomorrow for repeat CBC. Departure - Departure Time of Disposition: 18:05 Disposition: Home, Self-Care 01 Clinical Impression: GI bleed - Discharge Information Referrals: Tracy Quiroz MD [Primary Care Provider] - Forms: ED Department Discharge Additional Instructions: Return to the emergency room with any questions problems or worsening symptoms tonight. Tomorrow follow-up in the clinic and have a repeat CBC done. Sepsis Event Note (ED) - Evaluation Sepsis Screening Result: No Definite Risk - Focused Exam Vital Signs: Vital Signs Temp Pulse Resp BP Pulse Ox 05/15/21 14:24 36.2 C 82 16 70/44 L 97 - My Orders Last 24 Hours: My Active Orders 05/15/21 17:06 Abdomen Pelvis w Cont [CT] Stat - Assessment/Plan Last 24 Hours: My Active Orders 05/15/21 17:06 Abdomen Pelvis w Cont [CT] Stat
[2021-05-15] MEDS ORDERED: Sodium Chloride 0.9% 500 ML IV ONE (16:58)
== END 2021-05-15 18:22 | disposition home or self-care (01) ==
LOC: JD.ED 14:05
DX: K92.2 Gastrointestinal hemorrhage, unspecified (principal); Z88.8 Allergy status to other drugs, medicaments and biological substances; Z88.5 Allergy status to narcotic agent; Z79.01 Long term (current) use of anticoagulants; Z79.02 Long term (current) use of antithrombotics/antiplatelets; Z79.899 Other long term (current) drug therapy; Z72.0 Tobacco use
CPT/HCPCS: 36415; 80053; 83690; 85025; 85610; 85730; 99283-25; 99284

== ENCOUNTER 2021-09-12 12:43 | Emergency (ER) | payer MEDICARE, MEDICAID ==
[2021-09-12] MEDS ORDERED: Sodium Chloride 0.9% 1,000 ML IV ONE ×2 (13:08→22:15)
--- NOTE | 2021-09-12 13:10 | EDM.PDOC ---
<Olegario Acevedo - Last Filed: 09/13/21 06:56> ED HPI GENERAL MEDICAL PROBLEM - General Chief Complaint: Possible Sepsis Time Seen by Provider: 09/12/21 13:09 - Related Data Allergies Allergy/AdvReac Type Severity Reaction Status Date / Time amitriptyline Allergy Cannot Verified 09/12/21 13:07 Remember codeine Allergy Cannot Verified 09/12/21 13:07 Remember Home Meds: Home Meds oxyCODONE HCl [Oxycontin] 40 mg PO BID 02/04/19 [History] Apixaban [Eliquis] 5 mg PO BID 03/18/19 [History] Clopidogrel [Plavix] 75 mg PO DAILY 03/18/19 [History] Digoxin 125 mcg PO DAILY 03/18/19 [History] Losartan Potassium 25 mg PO DAILY 03/18/19 [History] carvediloL [Carvedilol] 3.125 mg PO BID 03/18/19 [History] Doxycycline [Vibramycin] 100 mg PO BID #20 cap 03/19/19 [Rx] Sulfamethoxazole/Trimethoprim [Bactrim Ds Tablet] 1 each PO BID #20 tablet 03/22/19 [Rx] Sulfamethoxazole/Trimethoprim [Bactrim Ds Tablet] 1 each PO BID #20 tablet 03/22/19 [Rx] Course - Re-Assessments/Exams Free Text/Narrative Re-Assessment/Exam: 09/12/21 19:[address] Miranda for change of shift. I agree with his physical examination as documented. The patient's CBC is remarkable for severe leukopenia of 0.39, an H/H significantly depressed at 5.8/19.6, and thrombocytopenia of 147,000. His CMP is remarkable for hyponatremia of 128, BUN/Cr elevated at 27/1.4. He has mild hyperglycemia of 114, with remainder of his CMP being unremarkable. His initial lactic acid was elevated at 3.7, with a subsequent lactic acid level down to 1.6. His PT/INR are elevated at 13.7/1.24. His urinalysis is remarkable for 2+ occult blood with 10-20 RBCs, leukocyte esterase negative with 0-5 WBCs, and nitrate negative with many bacteria. His swab for the SARS-CoV-2 virus is negative. Portable chest x-ray is read by Dr. Marie as: 1. Findings as noted above. 2. Nothing acute is appreciated. CT of the abdomen and pelvis with oral and IV contrast is read by Dr. Marie as: 1. Enlarged spleen with length of 17.5 cm. 2. Prior colostomy. Suprapubic catheter is also noted. 3. Probable scarring within both lung bases. 7 mm noncalcified nodule seen within the left lung base. Recommend follow-up chest CT study in 9 months to further evaluate. This would occur in June,. 4. Other chronic findings as noted above. Nothing acute is appreciated. 09/12/21 21:58 Both units of PRBCs have finished infusing. He received 1 L of NS. At present, the patient's BP is 62/38 with a HR of 82 bpm, SpO2 91% on room air. He is sleeping. Reviewing the VS from prior ED visits, I see that the patient has a history of hypotension, with SBP typicaly in the 60s to 70s. I have ordered a post-infusion H/H. He will be given a second liter of NS. 09/12/21 23:01 The patient's repeat H/H is 7.5/23.7. 09/13/21 06:48 The patient slept all night. He states that he slept well, and feels pretty good. His blood pressure is still low, currently at 50/32, with a HR of 75 bpm, but he acknowledges that it is always low. He stated that no one has been able to tell him why it is always so low. He denies a history of liver disease. I will discharge him home. Departure - Departure Time of Disposition: 06:57 Disposition: Home, Self-Care 01 Condition: Good Clinical Impression: Leukopenia, Severe anemia, Thrombocytopenia, Hyponatremia, Renal insufficiency, Hypotension - Discharge Information *PRESCRIPTION DRUG MONITORING PROGRAM REVIEWED*: Not Applicable *COPY OF PRESCRIPTION DRUG MONITORING REPORT IN PATIENT ANNA: Not Applicable Instructions: Anemia Referrals: Tracy Quiroz MD [Primary Care Provider] - Gilles Daniel MD [Ordering Only Provider] - Duy Granados MD [Ordering Only Provider] - Forms: ED Department Discharge Additional Instructions: You were sent to the emergency room from the infusion center for low blood pressure. Work-up in the ER included numerous blood tests, 2 sets of blood cultures, a urinalysis, a swab for the SARS-CoV-2 virus, a chest x-ray, and a CT of your abdomen and pelvis. Your white blood cell count was found to be very low at 0.39. Your hemoglobin/hematocrit was low at 5.8/19.6, and your platelets were low at 147,000. Your sodium was low at 128, and your kidney function was found to be impaired, with a BUN/Cr elevated at 27/1.7. You were treated with 2 units of packed red blood cells, and 2 L of IV fluid in the ER. Your blood pressure has persistently been low, however, reviewing prior medical records, we see that it is always low. Following the 2 units of packed red cells, your hemoglobin/hematocrit regina to 7.5/23.7. You may resume your usual home medications. Please follow-up with your PCP, Dr. Tracy Quiroz, at the next available appointment. If any other problems, please do not hesitate to return to the ER. <Adolph Miranda - Last Filed: 09/15/21 22:26> ED HPI GENERAL MEDICAL PROBLEM - General Source of Information: Reports: Patient History Limitations: Reports: No Limitations - History of Present Illness INITIAL COMMENTS - FREE TEXT/NARRATIVE: Patient is a 61-year-old male presenting to the emergency room for hypotension. Patient was referred from the transfusion clinic where he was scheduled to receive iron transfusion. Patient has no complaints at this time. 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 Patient reports appropriate stool output has not noticed any blood in the stool. Denies any lightheadedness, dizziness. Patient does report fatigue and generalized weakness. Nothing seems to make symptoms better or worse. Patient has longstanding history of anemia and was recently seen here several months ago for similar complaint. Patient did refuse blood transfusion at that time. Past Medical History Cardiovascular History: Reports: Other (See Below) Other Cardiovascular History: hypotension Gastrointestinal History: Reports: Other (See Below) Genitourinary History: Reports: Other (See Below) Musculoskeletal History: Reports: Other (See Below) Dermatologic History: Reports: Decubitus Ulcer - Past Surgical History GI Surgical History: Reports: Colostomy Male Surgical History: Reports: Suprapubic Catheter Placement Musculoskeletal Surgical History: Reports: Amputation Social & Family History - Caffeine Use Caffeine Use: Reports: None - Living Situation & Occupation Living situation: Reports: Single Occupation: Disabled ED ROS GENERAL - Review of Systems Review Of Systems: See Below Free Text/Narrative/Comment: In addition to that documented in the HPI above, the additional ROS was obtained: Constitutional: Denies fevers or chills Eyes: Denies vision changes ENMT: Denies sore throat CV: Denies chest pain Resp: Denies SOB GI: Denies vomiting or diarrhea : Denies painful urination MSK: Denies recent trauma Skin: Denies new rashes Neuro: Denies new numbness or tingling or weakness Endocrine: Denies unexpected weight loss Heme: Denies bleeding disorders ED EXAM, SEPSIS - Physical Exam Exam: See Below Text/Narrative:: I have reviewed the triage vital signs Const: Well nourished, well developed, appears stated age Eyes: Pupils Equal and reactive to light bilaterally, no conjunctival injection HENT: No signs of trauma or swelling, Neck supple without meningismus CV: Regular Rate Rhythm, Warm, well-perfused extremities RESP: Unlabored respiratory effort GI: soft, non-tender, non-distended, no masses. Ostomy intact. Dark brown stool in ostomy bag. No blood noted. Suprapubic catheter in place. MSK: No gross deformities appreciated Skin: Warm, dry. 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 Sensation and motor function of extremities grossly intact. Psych: Appropriate mood and affect. Course - Vital Signs Last Recorded V/S: Last Vital Signs Temp 38.6 C H 09/12/21 18:14 Pulse 108 H 09/12/21 18:08 Resp 30 H 09/12/21 15:06 BP 65/47 L 09/12/21 18:08 Pulse Ox 97 09/12/21 15:06 - Orders/Labs/Meds Labs: Laboratory Tests 09/12/21 09/12/21 09/12/21 Range/Units 13:24 13:24 13:24 WBC 0.39 L* (4.23-9.07) K/mm3 RBC 2.29 L (4.63-6.08) M/mm3 Hgb 5.8 L* D (13.7-17.5) gm/dl Hct 19.6 L (40.1-51.0) % MCV 85.6 (79.0-92.2) fl MCH 25.3 L (25.7-32.2) pg MCHC 29.6 L (32.2-35.5) g/dl RDW Std Deviation 64.0 H (35.1-43.9) fL Plt Count 147 L D (163-337) K/mm3 MPV 9.7 (9.4-12.3) fl Neut % (Auto) 7.6 L (34.0-67.9) % Lymph % (Auto) 51.3 (21.8-53.1) % [place] % (Auto) 38.5 H (5.3-12.2) % Eos % (Auto) 0 L (0.8-7.0) Baso % (Auto) 2.6 H (0.1-1.2) % Neut # (Auto) 0.03 L (1.78-5.38) K/mm3 Lymph # (Auto) 0.20 L (1.32-3.57) K/mm3 [place] # (Auto) 0.15 L (0.30-0.82) K/mm3 Eos # (Auto) 0.00 L (0.04-0.54) K/mm3 Baso # (Auto) 0.01 (0.01-0.08) K/mm3 Manual Slide Review Abnormal smear PT 13.7 H (9.7-12.0) SECONDS INR 1.24 Sodium 128 L (136-145) mEq/L Potassium 4.8 (3.5-5.1) mEq/L Chloride 96 L (98-107) mEq/L Carbon Dioxide 22 (21-32) mEq/L Anion Gap 14.8 (5-15) BUN 27 H (7-18) mg/dL Creatinine 1.7 H (0.7-1.3) mg/dL Est Cr Clr Drug Dosing TNP Estimated GFR (MDRD) 41 (>60) mL/min BUN/Creatinine Ratio 15.9 (14-18) Glucose 114 H (70-99) mg/dL Lactic Acid (0.4-2.0) mmol/L Calcium 8.5 (8.5-10.1) mg/dL Total Bilirubin 0.9 (0.2-1.0) mg/dL AST 48 H (15-37) U/L ALT 14 L (16-63) U/L Alkaline Phosphatase 226 H (46-116) U/L Total Protein 7.8 (6.4-8.2) g/dl Albumin 1.3 L (3.4-5.0) g/dl Globulin 6.5 gm/dL Albumin/Globulin Ratio 0.2 L (1-2) Urine Color (Yellow) Urine Appearance (Clear) Urine pH (5.0-8.0) Ur Specific [place] (1.005-1.030) Urine Protein (Negative) Urine Glucose (UA) (Negative) Urine Ketones (Negative) Urine Occult Blood (Negative) Urine Nitrite (Negative) Urine Bilirubin (Negative) Urine Urobilinogen (0.2-1.0) Ur Leukocyte Esterase (Negative) Urine RBC (0-5) /hpf Urine WBC (0-5) /hpf Ur Squamous Epith Cells (0-5) /hpf Amorphous Sediment (NOT SEEN) /hpf Urine Bacteria (FEW) /hpf Urine Mucus (FEW) /hpf SARS-CoV-2 RNA (KAT) (NEGATIVE) Blood Type Gel Antibody Screen Crossmatch 09/12/21 09/12/21 09/12/21 Range/Units 13:24 13:24 14:38 WBC (4.23-9.07) K/mm3 RBC (4.63-6.08) M/mm3 Hgb (13.7-17.5) gm/dl Hct (40.1-51.0) % MCV (79.0-92.2) fl MCH (25.7-32.2) pg MCHC (32.2-35.5) g/dl RDW Std Deviation (35.1-43.9) fL Plt Count (163-337) K/mm3 MPV (9.4-12.3) fl Neut % (Auto) (34.0-67.9) % Lymph % (Auto) (21.8-53.1) % [place] % (Auto) (5.3-12.2) % Eos % (Auto) (0.8-7.0) Baso % (Auto) (0.1-1.2) % Neut # (Auto) (1.78-5.38) K/mm3 Lymph # (Auto) (1.32-3.57) K/mm3 [place] # (Auto) (0.30-0.82) K/mm3 Eos # (Auto) (0.04-0.54) K/mm3 Baso # (Auto) (0.01-0.08) K/mm3 Manual Slide Review PT (9.7-12.0) SECONDS INR Sodium (136-145) mEq/L Potassium (3.5-5.1) mEq/L Chloride (98-107) mEq/L Carbon Dioxide (21-32) mEq/L Anion Gap (5-15) BUN (7-18) mg/dL Creatinine (0.7-1.3) mg/dL Est Cr Clr Drug Dosing Estimated GFR (MDRD) (>60) mL/min BUN/Creatinine Ratio (14-18) Glucose (70-99) mg/dL Lactic Acid 3.7 H* (0.4-2.0) mmol/L Calcium (8.5-10.1) mg/dL Total Bilirubin (0.2-1.0) mg/dL AST (15-37) U/L ALT (16-63) U/L Alkaline Phosphatase (46-116) U/L Total Protein (6.4-8.2) g/dl Albumin (3.4-5.0) g/dl Globulin gm/dL Albumin/Globulin Ratio (1-2) Urine Color Dark yellow (Yellow) Urine Appearance Slt cloudy H (Clear) Urine pH 6.0 (5.0-8.0) Ur Specific [place] 1.025 (1.005-1.030) Urine Protein 2+ H (Negative) Urine Glucose (UA) Negative (Negative) Urine Ketones Negative (Negative) Urine Occult Blood 2+ H (Negative) Urine Nitrite Negative (Negative) Urine Bilirubin 2+ H (Negative) Urine Urobilinogen >=8.0 H (0.2-1.0) Ur Leukocyte Esterase Negative (Negative) Urine RBC 10-20 H (0-5) /hpf Urine WBC 0-5 (0-5) /hpf Ur Squamous Epith Cells 0-5 (0-5) /hpf Amorphous Sediment Many H (NOT SEEN) /hpf Urine Bacteria Many H (FEW) /hpf Urine Mucus Rare (FEW) /hpf SARS-CoV-2 RNA (KAT) (NEGATIVE) Blood Type A POSITIVE Gel Antibody Screen Negative Crossmatch See Detail 09/12/21 09/12/2121 Range/Units 16:25 18:52 22:10 WBC (4.23-9.07) K/mm3 RBC (4.63-6.08) M/mm3 Hgb 7.5 L D (13.7-17.5) gm/dl Hct 23.7 L (40.1-51.0) % MCV (79.0-92.2) fl MCH (25.7-32.2) pg MCHC (32.2-35.5) g/dl RDW Std Deviation (35.1-43.9) fL Plt Count (163-337) K/mm3 MPV (9.4-12.3) fl Neut % (Auto) (34.0-67.9) % Lymph % (Auto) (21.8-53.1) % [place] % (Auto) (5.3-12.2) % Eos % (Auto) (0.8-7.0) Baso % (Auto) (0.1-1.2) % Neut # (Auto) (1.78-5.38) K/mm3 Lymph # (Auto) (1.32-3.57) K/mm3 [place] # (Auto) (0.30-0.82) K/mm3 Eos # (Auto) (0.04-0.54) K/mm3 Baso # (Auto) (0.01-0.08) K/mm3 Manual Slide Review PT (9.7-12.0) SECONDS INR Sodium (136-145) mEq/L Potassium (3.5-5.1) mEq/L Chloride (98-107) mEq/L Carbon Dioxide (21-32) mEq/L Anion Gap (5-15) BUN (7-18) mg/dL Creatinine (0.7-1.3) mg/dL Est Cr Clr Drug Dosing Estimated GFR (MDRD) (>60) mL/min BUN/Creatinine Ratio (14-18) Glucose (70-99) mg/dL Lactic Acid 1.6 (0.4-2.0) mmol/L Calcium (8.5-10.1) mg/dL Total Bilirubin (0.2-1.0) mg/dL AST (15-37) U/L ALT (16-63) U/L Alkaline Phosphatase (46-116) U/L Total Protein (6.4-8.2) g/dl Albumin (3.4-5.0) g/dl Globulin gm/dL Albumin/Globulin Ratio (1-2) Urine Color (Yellow) Urine Appearance (Clear) Urine pH (5.0-8.0) Ur Specific [place] (1.005-1.030) Urine Protein (Negative) Urine Glucose (UA) (Negative) Urine Ketones (Negative) Urine Occult Blood (Negative) Urine Nitrite (Negative) Urine Bilirubin (Negative) Urine Urobilinogen (0.2-1.0) Ur Leukocyte Esterase (Negative) Urine RBC (0-5) /hpf Urine WBC (0-5) /hpf Ur Squamous Epith Cells (0-5) /hpf Amorphous Sediment (NOT SEEN) /hpf Urine Bacteria (FEW) /hpf Urine Mucus (FEW) /hpf SARS-CoV-2 RNA (KAT) Negative (NEGATIVE) Blood Type Gel Antibody Screen Crossmatch Meds: Medications Discontinued Medications Generic Name Dose Route Start Last Admin Trade Name Freq PRN Reason Stop Dose Admin Acetaminophen 950 mg 09/12/21 18:00 Acetaminophen 325 Mg Tab PO 09/12/21 18:01 NOW ONE Acetaminophen 975 mg 09/12/21 18:11 09/12/21 18:14 Acetaminophen 325 Mg Tab PO 09/12/21 18:12 975 mg NOW ONE Administration Sodium Chloride 1,000 mls @ 1,000 mls/hr 09/12/21 13:08 09/12/21 13:43 Normal Saline IV 09/12/21 14:07 1,000 mls/hr ONETIME ONE Administration Sodium Chloride 1,000 mls @ 999 mls/hr 09/12/21 22:15 09/12/21 20:50 Normal Saline IV 09/12/21 23:15 999 mls/hr ONETIME ONE Administration Iopamidol 100 ml 09/12/21 17:25 09/12/21 17:46 Iopamidol 755 Mg/Ml 100 Ml Bottle IVPUSH 09/12/21 17:26 100 ml ONETIME ONE Administration Sodium Chloride 10 ml 09/12/21 17:25 09/12/21 17:46 Sodium Chloride 0.9% 10 Ml Syringe FLUSH 10 ml ONETIME PRN Administration Keep Vein Open Sepsis Event Note (ED) - Evaluation Sepsis Screening Result: Possible Sepsis Risk - Assessment/Plan Assessment:: Patient is 61-year-old male presenting to the emergency room with hypotension. Patient significantly hypotensive on arrival with a blood pressure in the 60s over 40s. Patient mildly tachycardic. Laboratory studies and peripheral IV were established. Differential diagnosis considered for this patient include severe blood loss anemia, sepsis, cardiogenic shock. Laboratory studies significant for hemoglobin of 5.8. Lactic acid elevated demonstrating evidence of possible endorgan damage secondary to hypotension. Patient remained with normal mental status through the entirety of emergency department stay. Received 2 units of PRBCs with significant improvement of blood pressure. I did discuss his case with general surgery on-call possible endoscopy after patient was stabilized. Patient was signed out to Dr. Acevedo pending admission/bed pl acement/transfer for likely GI bleed.
--- NOTE | 2021-09-12 13:55 | CR ---
Chest: Portable view of the chest was obtained. Comparison: Prior chest x-ray of 03/18/19. Heart size and mediastinum are within normal limits. Slight tortuosity of the thoracic aorta is seen. Lungs are clear with no acute parenchymal change. Surgery is seen within the lumbar spine and lower thoracic spine with trans-pedicle screws. Minimal scoliosis is noted within the spine. Impression: 1. Findings as noted above. 2. Nothing acute is appreciated. Diagnostic code #2
[2021-09-12] MEDS ORDERED: Iopamidol 612 MG/ML 100 ML Bottle IVPUSH ONE (17:18)
[2021-09-12] MEDS ORDERED: Iopamidol 612 MG/ML 50 ML SDV IVPUSH ONE (17:18)
[2021-09-12] MEDS ORDERED: Sodium Chloride 0.9% 10 ML Syringe FLUSH PRN (17:25)
[2021-09-12] MEDS ORDERED: Iopamidol 755 Mg/ML 100 ML Bottle IVPUSH ONE (17:25)
[2021-09-12] MEDS ORDERED: Acetaminophen 325 MG Tab PO ONE ×2 (18:00→18:11)
--- NOTE | 2021-09-12 18:19 | CT ---
CT abdomen and pelvis Technique: Multiple axial sections were obtained from above the dome of the diaphragm inferiorly through the pubic symphysis. Intravenous contrast was utilized in the arterial phase. Venous phase imaging was then performed. Reconstructed coronal and sagittal images were also obtained. Comparison: Prior CT pelvis study of 08/20/21, no prior CT abdomen or pelvis study is available. Findings: Patchy areas of increased density are seen within both lung bases which are worse on the right side. Findings most likely represent fibrosis. Small nodule is seen within the left lung base measuring 7 mm which shows no calcifications. Liver contains no focal abnormality. Spleen is enlarged measuring 17.5 cm in length. Adrenal glands show no nodules. Kidneys show multiple small low density lesions compatible with multiple cysts. Pancreas shows no discrete abnormality. Gallbladder contains no calcified gallstones. Abdominal aorta shows diffuse atherosclerotic calcification which continues into the iliac vessels. No retroperitoneal adenopathy is seen. No mesenteric abnormalities are seen. Colostomy is noted within the left lower abdomen. Suprapubic catheter is seen within the bladder. No discrete pelvic abnormality is appreciated. Diffuse deformity is noted within both hips. Prior surgery is noted within the lumbar and thoracic spine. Appendix is not visualized. No discrete inflammatory change or free fluid is seen. No discrete bowel dilatation is seen. No bowel wall thickening is seen. Impression: 1. Enlarged spleen with length of 17.5 cm. 2. Prior colostomy. Suprapubic catheter is also noted. 3. Probable scarring within both lung bases. 7 mm noncalcified nodule seen within the left lung base. Recommend follow-up chest CT study in 9 months to further evaluate. This would occur in June,. 4. Other chronic findings as noted above. Nothing acute is appreciated. Diagnostic code #3
== END 2021-09-13 09:11 | disposition home or self-care (01) ==
LOC: JD.ED 12:43
DX: I95.9 Hypotension, unspecified (principal); E87.1 Hypo-osmolality and hyponatremia; N28.9 Disorder of kidney and ureter, unspecified; D69.6 Thrombocytopenia, unspecified; D72.819 Decreased white blood cell count, unspecified; Z20.822 Contact with and (suspected) exposure to COVID-19; Z88.5 Allergy status to narcotic agent; Z88.8 Allergy status to other drugs, medicaments and biological substances; Z79.01 Long term (current) use of anticoagulants; Z79.02 Long term (current) use of antithrombotics/antiplatelets
CPT/HCPCS: 36415; 36430; 71045; 74177; 80053; 81001; 83605; 85014; 85018; 85025; 85610; 86850; 86900; 86901; 86922; 87040; 99285; A9270; J7030; P9016; Q9967; U0002

== ENCOUNTER 2021-09-17 09:20 | Emergency (ER) | payer MEDICARE, MEDICAID ==
--- NOTE | 2021-09-17 09:43 | EDM.PDOC ---
<Damion Jiménez - Last Filed: 09/17/21 14:38> ED HPI GENERAL MEDICAL PROBLEM - General Chief Complaint: Neurological Problem Stated Complaint: [facility] Time Seen by Provider: 09/17/21 09:36 - History of Present Illness INITIAL COMMENTS - FREE TEXT/NARRATIVE: 61-year-old male brought in by EMS with increased confusion weakness and abdominal pain. Stroke alert was called last known normal was 2 days ago. He complains of abdominal pain. He is very confused does not follow commands. He is hypotensive but this is normal for him. Patient was seen here 4 days ago received 2 units of packed red cells. The patient is on Eliquis he was noted to be markedly leukopenic. He did better with fluid and blood. CT evaluation of his abdomen at that point showed an enlarged spleen. No other history is available unfortunately at this time. - Related Data Allergies Allergy/AdvReac Type Severity Reaction Status Date / Time amitriptyline Allergy Cannot Verified 09/17/21 09:33 Remember codeine Allergy Cannot Verified 09/17/21 09:33 Remember Home Meds: Home Meds oxyCODONE HCl [Oxycontin] 40 mg PO BID 02/04/19 [History] Apixaban [Eliquis] 5 mg PO BID 03/18/19 [History] Clopidogrel [Plavix] 75 mg PO DAILY 03/18/19 [History] Digoxin 125 mcg PO DAILY 03/18/19 [History] Losartan Potassium 25 mg PO DAILY 03/18/19 [History] carvediloL [Carvedilol] 3.125 mg PO BID 03/18/19 [History] Doxycycline [Vibramycin] 100 mg PO BID #20 cap 03/19/19 [Rx] Sulfamethoxazole/Trimethoprim [Bactrim Ds Tablet] 1 each PO BID #20 tablet 03/22/19 [Rx] Sulfamethoxazole/Trimethoprim [Bactrim Ds Tablet] 1 each PO BID #20 tablet 03/22/19 [Rx] Past Medical History Cardiovascular History: Reports: Other (See Below) Other Cardiovascular History: hypotension Gastrointestinal History: Reports: Other (See Below) Genitourinary History: Reports: Neurogenic Bladder Musculoskeletal History: Reports: Amputation Hematologic History: Reports: Anemia, Iron Deficiency Dermatologic History: Reports: Decubitus Ulcer - Past Surgical History GI Surgical History: Reports: Colostomy Male Surgical History: Reports: Suprapubic Catheter Placement Musculoskeletal Surgical History: Reports: Amputation Social & Family History - Caffeine Use Caffeine Use: Reports: None - Living Situation & Occupation Living situation: Reports: Single Occupation: Disabled ED ROS GENERAL - Review of Systems Review Of Systems: See Below Reason Not Obtained: Unable to obtain he answers few questions. ED EXAM, GENERAL - Physical Exam Exam: See Below Exam Limited By: Altered Mental Status General Appearance: Lethargic, Obtunded, Other (Diaphoretic) Eye Exam: Bilateral Eye: Normal Inspection Ears: Other (Wax in the canals otherwise normal exam) Nose: Normal Inspection Throat/Mouth: Normal Oropharynx. No: Normal Teeth (Dentures not in place) Head: Atraumatic, Normocephalic Neck: Normal Inspection, Supple. No: Lymphadenopathy (L), Lymphadenopathy (R) Respiratory/Chest: No Respiratory Distress, Lungs Clear, Normal Breath Sounds Cardiovascular: Regular Rate, Rhythm, No Edema, No Murmur GI/Abdominal: Normal Bowel Sounds, Soft, Tender (Diffuse tenderness to lower abdomen examination of the stoma site is really unremarkable there is minimal erythema at the inferior margin.) Back Exam: Other (Dressing over decubitus ulcer site) #1 Interpretation EKG Date: 09/17/21 Rhythm: Other (Sinus tach borderline) Rate (Beats/Min): 104 Lenore: Normal P-Wave: Present QRS: Other (Interventricular conduction delay borderline) ST-T: Other (None specific nondiagnostic change) QT: Normal Comparison: Change From Previous EKG (Comparison EKG was done 02/04/2019 with a tachycardia rate in the mid 120s possible ectopic origin and also appeared to have repolarization abnormalities most likely due to the tachycardia. This is no longer the case.) Course - Re-Assessments/Exams Free Text/Narrative Re-Assessment/Exam: 09/17/21 11:40 Patient's work-up thus far is a little confusing his hemoglobin hematocrit is much better at 8.7 in 28.1 white count is above 4000. His blood gases showed pH 7.46 PCO2 is little low at 28.9 PO2 is 95 bicarb 20.5 O2 saturation 98.5%. Of concern is a troponin of 0.45 EKG shows no active ischemia. Chest x-ray is consistent with a developing pneumonia his urine albeit he is got a chronic indwelling catheter suggest infection. It took us a while to get a weight because he is uncomfortable but his sister stated he is 120 pounds we will start 2 g of Rocephin. And I will recheck a troponin to see how it is trending. Head CT is unremarkable 09/17/21 14:03 Second troponin is not trending upward and dropped slightly to 0.447 Patient is doing a little better he is more talkative he denies any chest pain and again states that his abdominal discomfort is around his stoma site.. Case discussed with 1 call at [facility] is in the got a PCU bed which would be perfect for him that accepting hospitalist is Dr. Rizzo who accepted the patient at approximately 130 [place] time Departure - Departure Time of Disposition: 14:05 Disposition: DC/Tfer to [facility] 02 Clinical Impression: Pneumonia, Hypoxia, Elevated troponin - Discharge Information Referrals: Tracy Quiroz MD [Primary Care Provider] - Forms: ED Department Discharge <Olegario Acevedo - Last Filed: 09/18/21 03:12> Course - Vital Signs Last Recorded V/S: Last Vital Signs Temp 37.2 C 09/17/21 09:34 Pulse 105 H 09/17/21 09:34 Resp 28 H 09/17/21 09:34 BP 89/60 L 09/17/21 09:34 Pulse Ox 96 09/17/21 09:34 - Orders/Labs/Meds Orders: Active Orders 24 hr Category Date Time Status BLOOD CULTURE ID BY PCR [MREF] Stat Lab 09/18/21 09:55 Received BLOOD CULTURE [MREF] Stat Lab 09/17/21 09:50 Results BLOOD CULTURE [MREF] Stat Lab 09/17/21 09:55 Results CULTURE URINE [MREF] Stat Lab 09/17/21 10:07 Received Blood Culture x2 Reflex Set [OM.PC] Stat Oth 09/17/21 09:37 Ordered Labs: Laboratory Tests 09/17/21 09/17/21 09/17/21 Range/Units 09:50 09:50 09:50 WBC 4.13 L (4.23-9.07) K/mm3 RBC 3.29 L (4.63-6.08) M/mm3 Hgb 8.7 L (13.7-17.5) gm/dl Hct 28.1 L (40.1-51.0) % MCV 85.4 (79.0-92.2) fl MCH 26.4 (25.7-32.2) pg MCHC 31.0 L (32.2-35.5) g/dl RDW Std Deviation 61.9 H (35.1-43.9) fL Plt Count 134 L (163-337) K/mm3 MPV 10.7 (9.4-12.3) fl Neut % (Auto) 71.2 H (34.0-67.9) % Lymph % (Auto) 15.0 L (21.8-53.1) % Bowman % (Auto) 11.9 (5.3-12.2) % Eos % (Auto) 0.2 L (0.8-7.0) Baso % (Auto) 0.2 (0.1-1.2) % Neut # (Auto) 2.94 (1.78-5.38) K/mm3 Lymph # (Auto) 0.62 L (1.32-3.57) K/mm3 Bowman # (Auto) 0.49 (0.30-0.82) K/mm3 Eos # (Auto) 0.01 L (0.04-0.54) K/mm3 Baso # (Auto) 0.01 (0.01-0.08) K/mm3 Manual Slide Review Abnormal smear PT 14.0 H (9.7-12.0) SECONDS INR 1.27 APTT 36.4 H (21.7-31.4) SECONDS Puncture Site ABG pH (7.35-7.45) ABG pCO2 (35.0-45.0) mmHg ABG pO2 (80.0-100.0) mmHg ABG HCO3 (22.0-26.0) meq/L ABG O2 Saturation (96.0-97.0) % ABG Base Excess (-2-2.0) Dmitry Test O2 Delivery Device Oxygen Flow Rate Sodium 130 L (136-145) mEq/L Potassium 4.5 (3.5-5.1) mEq/L Chloride 99 (98-107) mEq/L Carbon Dioxide 21 (21-32) mEq/L Anion Gap 14.5 (5-15) BUN 14 (7-18) mg/dL Creatinine 1.0 (0.7-1.3) mg/dL Est Cr Clr Drug Dosing TNP Estimated GFR (MDRD) > 60 (>60) mL/min BUN/Creatinine Ratio 14.0 (14-18) Glucose 115 H (70-99) mg/dL Lactic Acid (0.4-2.0) mmol/L Calcium 8.7 (8.5-10.1) mg/dL Total Bilirubin 1.8 H (0.2-1.0) mg/dL AST 29 (15-37) U/L ALT 13 L (16-63) U/L Alkaline Phosphatase 454 H (46-116) U/L Troponin I 0.450 H* (0.00-0.056) ng/mL Total Protein 6.8 (6.4-8.2) g/dl Albumin 1.0 L (3.4-5.0) g/dl Globulin 5.8 gm/dL Albumin/Globulin Ratio 0.2 L (1-2) Lipase 120 (73-393) U/L Urine Color (Yellow) Urine Appearance (Clear) Urine pH (5.0-8.0) Ur Specific [place] (1.005-1.030) Urine Protein (Negative) Urine Glucose (UA) (Negative) Urine Ketones (Negative) Urine Occult Blood (Negative) Urine Nitrite (Negative) Urine Bilirubin (Negative) Urine Urobilinogen (0.2-1.0) Ur Leukocyte Esterase (Negative) Urine RBC (0-5) /hpf Urine WBC (0-5) /hpf Ur Epithelial Cells (0-5) /hpf Urine Bacteria (FEW) /hpf Urine Mucus (FEW) /hpf Digoxin (0.9-2.0) ng/mL SARS-CoV-2 RNA (KAT) (NEGATIVE) 09/17/21 09/17/21 09/17/21 Range/Units 09:50 09:50 10:07 WBC (4.23-9.07) K/mm3 RBC (4.63-6.08) M/mm3 Hgb (13.7-17.5) gm/dl Hct (40.1-51.0) % MCV (79.0-92.2) fl MCH (25.7-32.2) pg MCHC (32.2-35.5) g/dl RDW Std Deviation (35.1-43.9) fL Plt Count (163-337) K/mm3 MPV (9.4-12.3) fl Neut % (Auto) (34.0-67.9) % Lymph % (Auto) (21.8-53.1) % Bowman % (Auto) (5.3-12.2) % Eos % (Auto) (0.8-7.0) Baso % (Auto) (0.1-1.2) % Neut # (Auto) (1.78-5.38) K/mm3 Lymph # (Auto) (1.32-3.57) K/mm3 Bowman # (Auto) (0.30-0.82) K/mm3 Eos # (Auto) (0.04-0.54) K/mm3 Baso # (Auto) (0.01-0.08) K/mm3 Manual Slide Review PT (9.7-12.0) SECONDS INR APTT (21.7-31.4) SECONDS Puncture Site ABG pH (7.35-7.45) ABG pCO2 (35.0-45.0) mmHg ABG pO2 (80.0-100.0) mmHg ABG HCO3 (22.0-26.0) meq/L ABG O2 Saturation (96.0-97.0) % ABG Base Excess (-2-2.0) Dmitry Test O2 Delivery Device Oxygen Flow Rate Sodium (136-145) mEq/L Potassium (3.5-5.1) mEq/L Chloride (98-107) mEq/L Carbon Dioxide (21-32) mEq/L Anion Gap (5-15) BUN (7-18) mg/dL Creatinine (0.7-1.3) mg/dL Est Cr Clr Drug Dosing Estimated GFR (MDRD) (>60) mL/min BUN/Creatinine Ratio (14-18) Glucose (70-99) mg/dL Lactic Acid 0.6 (0.4-2.0) mmol/L Calcium (8.5-10.1) mg/dL Total Bilirubin (0.2-1.0) mg/dL AST (15-37) U/L ALT (16-63) U/L Alkaline Phosphatase (46-116) U/L Troponin I (0.00-0.056) ng/mL Total Protein (6.4-8.2) g/dl Albumin (3.4-5.0) g/dl Globulin gm/dL Albumin/Globulin Ratio (1-2) Lipase (73-393) U/L Urine Color Yellow (Yellow) Urine Appearance Clear (Clear) Urine pH 6.5 (5.0-8.0) Ur Specific [place] 1.020 (1.005-1.030) Urine Protein 1+ H (Negative) Urine Glucose (UA) Negative (Negative) Urine Ketones Negative (Negative) Urine Occult Blood 2+ H (Negative) Urine Nitrite Positive H (Negative) Urine Bilirubin 1+ H (Negative) Urine Urobilinogen >=8.0 H (0.2-1.0) Ur Leukocyte Esterase 1+ H (Negative) Urine RBC 5-10 H (0-5) /hpf Urine WBC 40-50 H (0-5) /hpf Ur Epithelial Cells 0-5 (0-5) /hpf Urine Bacteria Moderate H (FEW) /hpf Urine Mucus Few (FEW) /hpf Digoxin < 0.2 L (0.9-2.0) ng/mL SARS-CoV-2 RNA (KAT) (NEGATIVE) 09/17/21 09/17/21 09/17/21 Range/Units 10:07 10:23 11:52 WBC (4.23-9.07) K/mm3 RBC (4.63-6.08) M/mm3 Hgb (13.7-17.5) gm/dl Hct (40.1-51.0) % MCV (79.0-92.2) fl MCH (25.7-32.2) pg MCHC (32.2-35.5) g/dl RDW Std Deviation (35.1-43.9) fL Plt Count (163-337) K/mm3 MPV (9.4-12.3) fl Neut % (Auto) (34.0-67.9) % Lymph % (Auto) (21.8-53.1) % Bowman % (Auto) (5.3-12.2) % Eos % (Auto) (0.8-7.0) Baso % (Auto) (0.1-1.2) % Neut # (Auto) (1.78-5.38) K/mm3 Lymph # (Auto) (1.32-3.57) K/mm3 Bowman # (Auto) (0.30-0.82) K/mm3 Eos # (Auto) (0.04-0.54) K/mm3 Baso # (Auto) (0.01-0.08) K/mm3 Manual Slide Review PT (9.7-12.0) SECONDS INR APTT (21.7-31.4) SECONDS Puncture Site Lt radial ABG pH 7.46 H (7.35-7.45) ABG pCO2 28.9 L (35.0-45.0) mmHg ABG pO2 95.0 (80.0-100.0) mmHg ABG HCO3 20.5 L (22.0-26.0) meq/L ABG O2 Saturation 98.5 H (96.0-97.0) % ABG Base Excess -2.3 L (-2-2.0) Dmitry Test Positive O2 Delivery Device Nasal cannula Oxygen Flow Rate 2.0 Sodium (136-145) mEq/L Potassium (3.5-5.1) mEq/L Chloride (98-107) mEq/L Carbon Dioxide (21-32) mEq/L Anion Gap (5-15) BUN (7-18) mg/dL Creatinine (0.7-1.3) mg/dL Est Cr Clr Drug Dosing Estimated GFR (MDRD) (>60) mL/min BUN/Creatinine Ratio (14-18) Glucose (70-99) mg/dL Lactic Acid (0.4-2.0) mmol/L Calcium (8.5-10.1) mg/dL Total Bilirubin (0.2-1.0) mg/dL AST (15-37) U/L ALT (16-63) U/L Alkaline Phosphatase (46-116) U/L Troponin I 0.447 H* (0.00-0.056) ng/mL Total Protein (6.4-8.2) g/dl Albumin (3.4-5.0) g/dl Globulin gm/dL Albumin/Globulin Ratio (1-2) Lipase (73-393) U/L Urine Color (Yellow) Urine Appearance (Clear) Urine pH (5.0-8.0) Ur Specific [place] (1.005-1.030) Urine Protein (Negative) Urine Glucose (UA) (Negative) Urine Ketones (Negative) Urine Occult Blood (Negative) Urine Nitrite (Negative) Urine Bilirubin (Negative) Urine Urobilinogen (0.2-1.0) Ur Leukocyte Esterase (Negative) Urine RBC (0-5) /hpf Urine WBC (0-5) /hpf Ur Epithelial Cells (0-5) /hpf Urine Bacteria (FEW) /hpf Urine Mucus (FEW) /hpf Digoxin (0.9-2.0) ng/mL SARS-CoV-2 RNA (KAT) Negative (NEGATIVE) Meds: Medications Discontinued Medications Generic Name Dose Route Start Last Admin Trade Name Freq PRN Reason Stop Dose Admin Sodium Chloride 1,000 mls @ 999 mls/hr 09/17/21 09:44 09/17/21 11:03 Normal Saline IV 09/17/21 10:44 999 mls/hr ONETIME ONE Administration Ceftriaxone Sodium 2 gm/ 100 mls @ 200 mls/hr 09/17/21 11:45 09/17/21 11:58 Sodium Chloride IV 200 mls/hr Q24H KIRSTIE Administration Sodium Chloride 150 ml 09/17/21 11:15 09/17/21 11:26 Sodium Chloride 0.9% 150 Ml Bag IV 150 ml ASDIRECTED KIRSTIE Administration - Re-Assessments/Exams Free Text/Narrative Re-Assessment/Exam: 09/18/21 03:11 Contacted by lab that 2 of the 4 blood cultures obtained 09/17/2021 are growing gram-negative rods. Franca at [facility] notified at 03:10.
[2021-09-17] MEDS ORDERED: Sodium Chloride 0.9% 1,000 ML IV ONE (09:44)
--- NOTE | 2021-09-17 10:00 | CT ---
Head CT Technique: Multiple axial sections through the brain were obtained. Intravenous contrast was not utilized. Reconstructed coronal and sagittal images were obtained. Comparison: No prior intracranial imaging is available. Findings: Ventricles along with basal cisterns and sulci over the convexities are moderately prominent. Minimal diminished density is noted within the periventricular white matter which is most likely due to minimal small vessel ischemic demyelination change. Old lacunar infarct is noted within the left basal ganglia. No other abnormal parenchymal densities are seen. No intracranial hemorrhage is seen. No midline shift or mass-effect is seen. Atherosclerotic calcification is seen within the vertebral vessels and within the carotid siphon. There is moderate to marked mucosal thickening within the sphenoid sinus. Mild mucosal thickening is seen within the right frontal sinus. Nasal septal deviation is seen. Left mastoid sinus shows minimal fluid. No acute calvarial abnormality is appreciated. Impression: 1. Sinus findings most likely chronic. Small amount of fluid within the left mastoid sinus is seen which is most likely incidental if patient has no symptoms of mastoiditis. 2. Mild senescent change as noted above. 3. No acute intracranial abnormality is appreciated. Note: If patient has sufficient symptoms, MRI could be considered to further evaluate. Diagnostic code #2
--- NOTE | 2021-09-17 10:53 | CR ---
Chest: Portable view of the chest was obtained. Comparison: Prior chest x-ray of 09/12/21 and 03/18/19. Slight patchy increased density is seen within both sides of the chest. Findings have increased in prominence from prior exam. Heart size is normal. Slight tortuosity of the thoracic aorta is seen. Prior mandible surgery is noted. Scoliosis is noted within the spine. Previous surgery is seen within the lumbar and lower thoracic spine. Impression: 1. Slight patchy areas of increased density within both sides of the chest representing at least bronchitis and possible minimal areas of pneumonia. 2. Other chronic findings as noted above. Diagnostic code #3
[2021-09-17] MEDS ORDERED: Sodium Chloride 0.9% 150 ML Bag IV SCH (11:15)
--- NOTE | 2021-09-17 11:20 | CR ---
Abdomen: Supine view of the abdomen was obtained. Comparison: No prior abdominal x-ray, prior CT abdomen and pelvis study of 09/12/21. Deformity of both hips are noted which appear chronic. Prior lower thoracic and upper lumbar spine surgery is noted. Bowel gas pattern appears within normal limits. Diffuse vascular calcification is seen. Visualized lungs are clear. Heart size is normal. Impression: 1. Chronic findings as noted above. 2. Nothing acute is appreciated on supine abdominal x-ray. Diagnostic code #2
[2021-09-17] MEDS ORDERED: cefTRIAXone 2 GM in Sodium Chloride 0.9% 100 ML IV SCH (11:45)
== END 2021-09-17 15:08 ==
LOC: JD.ED 09:20
DX: J18.9 Pneumonia, unspecified organism (principal); R79.89 Other specified abnormal findings of blood chemistry; R09.02 Hypoxemia; R00.0 Tachycardia, unspecified; Z88.8 Allergy status to other drugs, medicaments and biological substances; Z88.5 Allergy status to narcotic agent; Z79.899 Other long term (current) drug therapy; Z20.822 Contact with and (suspected) exposure to COVID-19
CPT/HCPCS: 36415; 36600; 70450; 71045; 74019; 80053; 80162; 81001; 82803; 83605; 83690; 84484; 85025; 85610; 85730; 87040; 87086; 93005; 96365; 99285; J0696; J7030; U0002; 87077; 87088; 87186